=== PATIENT | male | born 1960 | race Caucasian/White ===

== ENCOUNTER 2021-04-13 07:05 | Day surgery (SDC) | payer BC ==
[~2021-04-13] VITALS: Ht 175.3 cm; Wt 93.0 kg
[~2021-04-13 07:05] MED LIST: ACETAMINOP160 MG/5 M PO; ALTOPREV20 MG PO; ASPIRIN81 MG PO; BUPROPN HCL300 MG PO; CINNAMON500 M1 PO; CIPROFLOXACN500 MG PO; EZALLOR SPRINKL10 MG; LEXAPRO10 MG PO; LISINOPRIL20 MG PO; LORTAB 10-325 M1 TAB PO; MAGNESIUM500 M3; METFORMIN500 M2 PO; METRONIDAZOL500 MG PO; SERTRALINE25 MG PO; ZOFRAN ODT4 MG PO
[2021-04-13 10:03] VITALS: BP 118/75
== END 2021-04-13 10:05 | disposition home or self-care (01) | DRG 951 ==
LOC: ENDO 07:05 → ORM 10:10
PROVIDERS: ATTEND Surgery
PROC: 0DBM8ZX Excision of Descending Colon, Via Natural or Artificial Opening Endoscopic, Diagnostic (ICD-10-PCS; principal; 2021-04-13)
DX: Z12.11 Encounter for screening for malignant neoplasm of colon (principal); D12.4 Benign neoplasm of descending colon; I10 Essential (primary) hypertension; E11.9 Type 2 diabetes mellitus without complications; E78.5 Hyperlipidemia, unspecified; Z90.49 Acquired absence of other specified parts of digestive tract; Z79.84 Long term (current) use of oral hypoglycemic drugs; Z86.010 Personal history of colon polyps

== ENCOUNTER 2021-07-27 08:34 | Observation (INO) | payer BC ==
[~2021-07-27] VITALS: Ht 175.3 cm; Wt 77.0 kg
[2021-07-27] VITALS (12 sets, daily range): BP systolic 132–179; BP diastolic 94–105
[~2021-07-27 08:34] MED LIST changes: +CRESTOR10 MG PO; -EZALLOR SPRINKL10 MG
--- NOTE | 2021-07-27 08:35 | NUR ---
PATIENT TO ROOM 9
--- NOTE | 2021-07-27 08:37 | NUR ---
NIH 0, GAIT STEADY, NO IMBALANCE NOTED. SPEECH APPROPRIATE, SPEECH HESITANT.
[2021-07-27 09:28] LABS: HEMATOCRIT 45.6 % (39.0-50.0); HEMOGLOBIN 15.3 g/dl (14.0-18.0); IMMATURE GRANULOCYTES 0.1 % (0.0-5.0); MEAN CELL VOLUME 91.2 fL CALC (80.0-100.0); MEAN CORPUSCULAR HGB 30.6 pG CALC (26.0-32.0); MEAN CORPUSCULAR HGB CONC 33.6 g/dL CAL (32.0-36.0); NEUT# 6.3 thou/uL (1.82-7.42); RED CELL DISTRI WIDTH 12.2 % (11.5-15.5)
[2021-07-27 09:41] LABS: ALBUMIN 4.8 g/dL (3.2-5.0); ALKALINE PHOSPHATASE 61 u/l (38-126); ANION GAP 13 (6-22 (CALC)); BILIRUBIN, TOTAL 0.6 mg/dL (0.0-1.4); BUN 12 mg/dL (9-20); BUN/CREATININE RATIO 16 (12-20 (CALC)); CHLORIDE 104 mmol/l (95-108); CREATININE 0.8 mg/dL (0.7-1.3); GFR > 60 ML/MIN (>=60 (CALC)); GFR FOR AFR.AMER. > 60 ML/MIN (>=60 (CALC)); POTASSIUM 4.1 mmol/l (3.5-5.1); SGOT/AST 46 u/l (17-59); SODIUM 139 mmol/l (137-146); TOTAL PROTEIN 8.2 g/dL (6.3-8.2)
[2021-07-27 09:43] LABS: CARBON DIOXIDE 26 mmol/l (22-30)
[2021-07-27 09:53] LABS: MYOGLOBIN 54 ng/mL (0 - 121)
--- NOTE | 2021-07-27 09:56 | NUR ---
REPORT RECEIVED FROM TEA MCKEON FOR TRANSITION OF CARE
--- NOTE | 2021-07-27 10:06 | NUR ---
PT RESTING ON ED BED WITH AT THE BEDSIDE. PT ALERT AND ORIENTED TO PERSON ONLY.
--- NOTE | 2021-07-27 10:30 | NUR ---
MONITOR FOR NEURO TELE SPECIALIST PLACED IN PT'S ROOM FOR UPCOMING ASSESSMENT. PT AND EDUCATED ON POC. BOTH VERBALIZE UNDERSTANDING.
--- NOTE | 2021-07-27 11:30 | NUR ---
PT'S REPORTS THAT PT MAY HAVE RECENTLY HIT HIS HEAD. DR MALAVE AWARE. CONTINUE TO WAIT FOR TELE SPECIALIST ASSESSMENT.
[2021-07-27] MEDS ORDERED: ACETAMINOPHEN (11:42)
--- NOTE | 2021-07-27 11:45 | NUR ---
PT REMAINS STABLE, REVIEWED HOME MEDS WITH PT AND HIS . PER , PT TAKES A MEDICATION FOR HIS KNEE, BUT UNABLE TO RECALL THE NAME. PT DENIES ANY NEEDS AT THIS TIME.
--- NOTE | 2021-07-27 12:45 | NUR ---
DR MALAVE IN TO SPEAK WITH PT AND HIS , PT'S UPSET ABOUT THE LENGTH OF WAIT TIME.
[2021-07-27 13:14] LABS: URINE BILIRUBIN - DIPSTICK NEGATIVE (NEGATIVE); URINE BLOOD DIPSTICK NEGATIVE (NEGATIVE); URINE COLOR YELLOW; URINE GLUCOSE - DIPSTICK NEGATIVE (NEGATIVE); URINE KETONE NEGATIVE (NEGATIVE); URINE LEUK ESTERASE NEGATIVE (NEGATIVE); URINE PROTEIN - DIPSTICK NEGATIVE (NEG-TRACE); URINE SPECIFIC GRAVITY 1.015; URINE UROBILINOGEN - DIPSTICK 0.2 E.U./dL (0.2)
[2021-07-27 13:16] LABS: URINE NITRITE - DIPSTICK NEGATIVE (Negative)
--- NOTE | 2021-07-27 13:24 | NUR ---
PT REMAINS STABLE, AWAITING TELE SPECIALIST ASSESSMENT AND FURTHER IMAGING.
--- NOTE | 2021-07-27 13:54 | NUR ---
PT COMPLETED EVALUATION BY DR. JORGE CARPIO NEURO, TELESPECIALIST . PT AND AGREEABLE WITH POC PRESENTED. PT REMAINS CONFUSED ABOUT HIS AGE AND THE YEAR. ABLE TO PERFORM WRITING EVALUATION. NO SLURRED SPEECH, FACIAL DROOP. WILL CONTINUE TO MONITOR.
--- NOTE | 2021-07-27 14:47 | NUR ---
PT'S ASKING ABOUT THE PLAN AND IF SHE CAN LEAVE. ADVISED THAT WE CONTINUE TO WAIT FOR INFORMATION FROM NEURO AND RESULTS FROM IMAGING. PT'S VERBALIZES UNDERSTANDING AND REMAINS AT THE BEDSIDE.
--- NOTE | 2021-07-27 15:39 | NUR ---
DR MALAVE IN TO SPEAK WITH PT AND HIS ABOUT POC/ADMISSION.
--- NOTE | 2021-07-27 15:42 | NUR ---
PT'S LEAVES ED.
[2021-07-27 16:00] LABS: C-REACTIVE PROTEIN < 0.5 mg/dL (0-0.9); CALCULATED LDLCHOLESTEROL 89 mg/dL (62-129 (CALC)); CHOLESTEROL HDL RATIO 3.6 (<4.4 (CALC)); HDL CHOLESTEROL 47 mg/dL (>=40); MAGNESIUM 2.1 mg/dL (1.6-2.3); TOTAL CHOLESTEROL 168 mg/dl (0-199); TOTAL TRIGLYCERIDES 163 mg/dl (30-149); VLDL CHOLESTROL 33 mg/dl (8-62 (CALC))
--- NOTE | 2021-07-27 16:20 | NUR ---
PT WITH DOG FOOD SHREDDER OPERATOR AT THE BEDSIDE. PT DENIES ANY NEEDS. WILL CONTINUE TO MONITOR.
--- NOTE | 2021-07-27 17:19 | NUR ---
PT ALERT AND ORIENTED TO PERSON AND PLACE. WHEN ASKED HIS AGE, PT REPORTS "65". PT ABLE TO IDENTIFY HIS 'S NAME. PT DENIES ANY NEEDS, WILL CONTINUE TO MONITOR.
--- NOTE | 2021-07-27 17:55 | NUR ---
DINNER TRAY PROVIDED FOR PT AND SET UP. PT DENIES NEEDING ANY ASSISTANCE. WILLC CONTINUE TO MONITOR.
--- NOTE | 2021-07-27 17:59 | NUR ---
SBAR REPORT GIVEN TO AILEEN BALLARD/MED/SURG. PT TO BE ADMITTED TO ROOM 260.
--- NOTE | 2021-07-27 18:30 | NUR ---
PT TAKEN TO MED/SURG ROOM 260 VIA STRETCHER. PT CONNECTED TO TELE. PT ABLE TO STAND AND WALK TO MED/SURG BED. ALL PAPERWORK AND BELONGINGS HANDED OFF TO STAFF. PT STABLE AT TIME OF ADMISSION.
--- NOTE | 2021-07-27 18:32 | NUR ---
PT ARRIVED TO FLOOR VIA STRETCHER ACCOMPAINED BY ER STAFF. PT AMBULATORY FROM STRETCHER TO BED WITH STEADY GAIT. ORIENTED TO ROOM AND CALL LIGHT SYSTEM. CALL LIGHT WITHIN REACH. W
--- NOTE | 2021-07-27 18:40 | NUR ---
ATTEMPTED TO NOTIFY CHASER HELPER PHYSICIAN OF ELEVATED BP. WILL PASS ON TO ONCOMING NURSE.
--- NOTE | 2021-07-27 20:00 | NUR ---
PHYSICAL ASSESMENT COMPLETE. PT CURRENTLY DENIES PAIN OR DISCOMFORT. SCHEDULED MEDICATIONS AND PRN MEDICATION ADMINISTERED, SEE E-MAR. PT DENIES ANY NEEDS AT THIS TIME. PLAN OF CARE REVIEWED, PT DENIES QUESTIONS, VERBALIZES UNDERSTANDING. ITEMS WITHIN REACH, BED LOCKED IN LOW POSITION W/ BEDRAILS UP X2. CALL [place] WITHIN REACH, AGREES TO CALL PRN.
[2021-07-28] VITALS: BP 165/87
--- NOTE | 2021-07-28 02:58 | NUR ---
PT LAYING IN BED WITH EYES CLOSED, APPEARS TO BE SLEEPING, APPEARS COMFORTABLE AND IN NO DISTRESS. RESPIRATIONS REGULAR AND UNLABORED. ITEMS REMAIN WITHIN REACH, CALL [place] REMAINS WITHIN REACH. BED REMAINS LOCKED AND IN LOW POSITION WITH BEDRAILS UP X2. WILL CONTINUE TO MONITOR.
[2021-07-28 04:00] VITALS: BP 150/89
[2021-07-28 05:15] LABS: HEMATOCRIT 46.6 % (39.0-50.0); HEMOGLOBIN 15.2 g/dl (14.0-18.0); MEAN CORPUSCULAR HGB 30.3 pG CALC (26.0-32.0); MEAN CORPUSCULAR HGB CONC 32.6 g/dL CAL (32.0-36.0); RED BLOOD COUNT 5.01 mill/uL (4.70-6.10); RED CELL DISTRI WIDTH 12.7 % (11.5-15.5)
[2021-07-28 05:38] LABS: ANION GAP 17 (6-22 (CALC)); BUN 16 mg/dL (9-20); BUN/CREATININE RATIO 19 (12-20 (CALC)); CARBON DIOXIDE 24 mmol/l (22-30); CHLORIDE 105 mmol/l (95-108); CREATININE 0.9 mg/dL (0.7-1.3); GFR > 60 ML/MIN (>=60 (CALC)); GFR FOR AFR.AMER. > 60 ML/MIN (>=60 (CALC)); MAGNESIUM 2.3 mg/dL (1.6-2.3); POTASSIUM 4.8 mmol/l (3.5-5.1); SODIUM 140 mmol/l (137-146)
--- NOTE | 2021-07-28 07:00 | NUR ---
RECEIVE REPORT FROM GEM METCALF.
--- NOTE | 2021-07-28 08:52 | NUR ---
PATIENT ALERT AND ORIENTED X3 AT THIS TIME. GOOD RESPIRATORY RATE. NO REFER PAIN OR DISCONFORT. EDUCATES PATIENT ABOUT MEDICATIONS AND NURSING PLAN FOR TODAY. PATIENT REPORT UNDERSTAND.
[2021-07-28 08:54] VITALS: BP 147/85
[2021-07-28] MEDS ORDERED: OMEPRAZOLE DR20 MG PO (09:16)
[2021-07-28] MEDS ORDERED: METFORMIN HCL500 M1 PO (09:17)
[2021-07-28 10:32] VITALS: BP 140/82
[2021-07-28] MEDS ORDERED: ATORVASTATIN CA40 MG PO ×2 (13:15→13:16)
--- NOTE | 2021-07-28 13:41 | NUR ---
PATIENT DISCHARGED IS EDUCATES ABOUT MEDICATIONS ROUTINE CONTINEU AT HOME AND FOLLOW UP WITH PRIMARY DOCTOR. PATIENT AND REFER UNDERSTAND.
== END 2021-07-28 13:48 | disposition home or self-care (01) | DRG 66 ==
LOC: ED 08:34 → ED-I 15:26 → ED 15:30 → MS2 15:40
PROVIDERS: Emergency Medicine; ADMIT Hospitalist; ATTEND Hospitalist
DX: I63.541 Cerebral infarction due to unspecified occlusion or stenosis of right cerebellar artery (principal); R41.0 Disorientation, unspecified; R29.701 NIHSS score 1; I10 Essential (primary) hypertension; E11.9 Type 2 diabetes mellitus without complications; E78.5 Hyperlipidemia, unspecified; F32.A Depression, unspecified; Z90.49 Acquired absence of other specified parts of digestive tract; Z79.84 Long term (current) use of oral hypoglycemic drugs; Z20.822 Contact with and (suspected) exposure to COVID-19
CPT/HCPCS: G0378; J1650; Q9967